=== PATIENT | female | born 1935 | race Caucasian/White ===

== ENCOUNTER 2021-09-27 12:32 | Outpatient (CLI) | payer MEDICARE | END 2021-09-27 12:33 | disposition home or self-care (01) | LOC: MRI 12:32 | PROVIDERS: ATTEND Surgery | DX: M47.26 Other spondylosis with radiculopathy, lumbar region (principal); M51.36 Other intervertebral disc degeneration, lumbar region; M48.061 Spinal stenosis, lumbar region without neurogenic claudication; Z98.890 Other specified postprocedural states | CPT/HCPCS: 72120; 72148 ==